=== PATIENT | female | born 1955 | race Hispanic/Latino ===

== ENCOUNTER 2017-06-13 13:47 | Inpatient (IN) | payer MEDICAID ==
[2017-06-13 13:56] VITALS: O2SAT 99
[2017-06-13 15:08] LABS: BASO # 0.1 K/uL (0.0-0.2); EOS % 0.3 % (0.0-4.0); HEMATOCRIT 41.8 % (34.0-47.0); LYMPH # 1.7 K/uL (1.0-4.3); LYMPH % 24.4 % (20.0-40.0); MEAN CELL VOLUME 87.8 fl (81.0-99.0); MEAN CORPUSCULAR HEMOGLOBIN 29.5 pg (27.0-31.0); MEAN CORPUSCULAR HGB CONC 33.6 g/dL (33.0-37.0); MEAN PLATELET VOLUME 9.3 fl (7.2-11.7); MONO # 0.5 K/uL (0.0-0.8); MONO % 7.1 % (0.0-10.0); NEUT # 4.6 K/uL (1.8-7.0); NEUT % 67.2 % (50.0-75.0); NRBC % 0.1 % (0.0-0.0); RED CELL DISTRIBUTION WIDTH 12.8 % (11.5-14.5); WHITE BLOOD COUNT 6.8 K/uL (4.8-10.8)
[2017-06-13 15:15] LABS: ALB/GLOB RATIO 1.5 (1.0-2.1); ALCOHOL SERUM < 10 mg/dl (0-10); ALKALINE PHOSPHATASE 79 U/L (38-126); ALT/SGPT 31 U/L (9-52); AST/SGOT 21 U/L (14-36); BILIRUBIN,TOTAL 1.1 mg/dl (0.2-1.3); BLOOD UREA NITROGEN 10 mg/dl (7-17); CARBON DIOXIDE 24 mmol/L (22-30); CHLORIDE 106 mmol/L (98-107); GFR AFRICAN-AMERICAN > 60; GLUCOSE,RANDOM 140 mg/dL (65-105); POTASSIUM 4.4 MMOL/L (3.6-5.0); SODIUM 145 mmol/l (132-148); TOTAL PROTEIN 7.4 G/DL (6.3-8.2)
[2017-06-13] MEDS ORDERED: Lidocaine 1% Inj (20ml) ONE (15:35)
[2017-06-13] MEDS ORDERED: Bismuth Subsalicylate 262 mg/15 ml Sus (240 ml) PO PRN (20:16)
[2017-06-13] MEDS ORDERED: Alum-Mag Hydrox-Simethicone Susp (30 mL) PO PRN (20:16)
[2017-06-13] MEDS ORDERED: Magnesium Hydroxide Susp 30 ml UD PO PRN (20:16)
[2017-06-14 06:15] LABS: CHOLESTEROL 213 mg/dL (0-199)
[2017-06-14 06:35] LABS: T4 8.15 ug/dl (5.5-11.0)
[2017-06-14 07:23] LABS: IRON 92 ug/dL (37-170)
[2017-06-14 13:27] LABS: FOLATE > 20.0 ng/mL
[2017-06-15 06:54] LABS: BLOOD UREA NITROGEN 14 mg/dl (7-17); CARBON DIOXIDE 21 mmol/L (22-30); CHLORIDE 107 mmol/L (98-107); GFR AFRICAN-AMERICAN > 60; GLUCOSE,RANDOM 159 mg/dL (65-105); POTASSIUM 4.2 MMOL/L (3.6-5.0); SODIUM 146 mmol/l (132-148)
[2017-06-17 05:25] VITALS: BP 129/74; PULSE 73; RESP 19; TEMP 98.2
== END 2017-06-17 13:00 | disposition home or self-care (01) | DRG 881 ==
LOC: H.ER 13:47 → H.ERHOLD 17:10 → H.STEP 20:07
PROVIDERS: ADMIT Psychiatry & Neurology Psychiatry; ATTEND Psychiatry & Neurology Psychiatry
PROC: GZHZZZZ Group Psychotherapy (ICD-10-PCS; principal; 2017-06-13)
PROC: GZ58ZZZ Individual Psychotherapy, Cognitive-Behavioral (ICD-10-PCS; 2017-06-13)
PROC: 0HQDXZZ Repair Right Lower Arm Skin, External Approach (ICD-10-PCS; 2017-06-13)
PROC: 3E0234Z Introduction of Serum, Toxoid and Vaccine into Muscle, Percutaneous Approach (ICD-10-PCS; 2017-06-13)
DX: F32.9 Major depressive disorder, single episode, unspecified (principal); F60.3 Borderline personality disorder; S61.511A Laceration without foreign body of right wrist, initial encounter; X78.8XXA Intentional self-harm by other sharp object, initial encounter; Z91.5 Personal history of self-harm; Z23 Encounter for immunization; Z63.9 Problem related to primary support group, unspecified; Y92.9 Unspecified place or not applicable

== ENCOUNTER 2017-06-22 13:54 | Emergency (ER) | payer MEDICAID ==
[2017-06-22 14:07] VITALS: BP 157/87; PULSE 93; RESP 16; TEMP 98.4; O2SAT 97
--- NOTE | 2017-06-22 14:29 | ED PDOC ---
HPI: Wound Care - HPI Time Seen by Provider: 06/22/17 14:15 Chief Complaint (Nursing): Suture/Staple Removal Chief Complaint (Provider): Suture removal History Per: Patient Exam Limitations: no limitations Location Of Injury: Right: Wrist, Anterior: Wrist Additional Complaint(s): Patient is a 62 y/o female with no significant past medical history presenting to the emergency department for suture removal on her right wrist. Reports that six stitches were placed nine days ago, on 06/13/17. PCP: none provided. Past Medical History Reviewed: Historical Data, Nursing Documentation, Vital Signs Vital Signs: Last Vital Signs Temp 98.4 F 06/22/17 14:04 Pulse 93 H 06/22/17 14:04 Resp 16 06/22/17 14:04 BP 157/87 H 06/22/17 14:04 Pulse Ox 97 06/22/17 14:04 - Medical History PMH: Denies: Diabetes (Pt denies), Hepatitis (Pt denies), HIV (Pt denies), HTN ( Pt denies), Seizures (Pt denies), Sexually Transmitted Disease (Pt denies) - Surgical History Surgical History: Tonsillectomy - Family History Family History: States: Unknown Family Hx - Home Medications Home Medications: Ambulatory Orders Medication Instructions Recorded No Known Home Med 06/13/17 - Allergies Allergies/Adverse Reactions: Allergies Allergy/AdvReac Type Severity Reaction Status Date / Time diphenhydramine Allergy palpatation Verified 06/13/17 13:53 [From [facility]] s Review of Systems ROS Statement: Except As Marked, All Systems Reviewed And Found Negative Physical Exam - Reviewed Nursing Documentation Reviewed: Yes Vital Signs Reviewed: Yes - Physical Exam Appears: Positive for: Well, Non-toxic, No Acute Distress Head Exam: Positive for: ATRAUMATIC, NORMAL INSPECTION, NORMOCEPHALIC Skin: Positive for: Normal Color, Warm, Dry Eye Exam: Positive for: Normal appearance Neck: Positive for: Normal Cardiovascular/Chest: Positive for: Regular Rate, Rhythm Respiratory: Negative for: Accessory Muscle Use, Respiratory Distress Gastrointestinal/Abdominal: Positive for: Normal Exam Extremity: Positive for: Normal ROM Neurologic/Psych: Positive for: Alert, Oriented (x3) - ECG O2 Sat by Pulse Oximetry: 97 (RA) Pulse Ox Interpretation: Normal Procedure: Wound Repair - Procedure Procedure: Wound Repair: Stiches removal (6) - Consent Obtained Consent obtained: Verbal - Performed by Performed by: Mid-level Provider - Location Location:: Right, Anterior, Wrist Medical Decision Making Medical Decision Making: Time: 14:15 Initial impression: Stitches removal Initial plan: Stitches removal 14:30 Patient consented to removal of stitches. Patient tolerated procedure well. Scribe Attestation: Documented by Becki Connor, acting as a scribe for BRADEN Lamb. Provider Scribe Attestation: All medical record entries made by the Scribe were at my direction and personally dictated by me. I have reviewed the chart and agree that the record accurately reflects my personal performance of the history, physical exam, medical decision making, and the department course for this patient. I have also personally directed, reviewed, and agree with the discharge instructions and disposition. Disposition - Clinical Impression Clinical Impression: Removal of suture - Patient ED Disposition Is Patient to be Admitted: No - Disposition Disposition: Routine/Home Disposition Time: 14:30 Condition: FAIR Instructions: Stitches Removal (ED) Forms: [employer] (Setswana)
== END 2017-06-22 15:10 | disposition home or self-care (01) ==
LOC: H.ER 13:54
DX: Z48.02 Encounter for removal of sutures (principal)